=== PATIENT | female | born 1950 | race Caucasian/White ===

== ENCOUNTER 2020-08-18 13:23 | Outpatient (RCR) | payer MEDICARE, OTHER, SELFPAY ==
[2020-08-18] MEDS: COVID-19 VACC, MRNA(PFIZER)/PF 30 MCG/0.3 ML SYRINGE IM (12:05)
[2020-09-08] MEDS: COVID-19 VACC, MRNA(PFIZER)/PF 30 MCG/0.3 ML SYRINGE IM (11:52)
== END 2020-11-17 23:59 ==
LOC: IMMUN 13:23
PROVIDERS: PCP Family Medicine; Visit Provider Family Medicine
DX: Z23 Encounter for immunization (principal)
CPT/HCPCS: 0001A; 0002A; 91300

== ENCOUNTER 2023-01-30 11:22 | Emergency (ER) | payer MEDICARE, OTHER, SELFPAY ==
[2023-01-30 11:23] VITALS: BP 133/74; PULSE 97; RESP 18; TEMP 36.9; O2SAT 99; BMI 22.8
--- NOTE | 2023-01-30 11:42 | ED.VIS.LOWEX ---
HPI History of Present Illness Chief Complaint: Lower Extremity Injury Detail of Chief Complaint: Infection right lower extremity Informant: patient and spouse/S.O. Occured/Mechanism Comment: Blunt trauma from boot rubbing against bare skin with formation of blister . Became red on Monday. Patient attempted to drain by poking with a sterile needle . Onset/Context/Timing Onset: Days Context: Sudden Onset Timing: Continuous Quality of Pain: Burning Location: Medial right ankle and foot Current Severity: Moderate Maximum Severity: Moderate Worsened by: Blister with disruption of skin Relieved by: Napping Associated Symptoms Associated Symptoms: Negative for Parasthesia, Weakness or Loss of Funtion Narrative Narrative: Patient is a 72-year-old woman with history of hypercholesterolemia and hypothyroidism who presents because of infected blister. Patient denies fever or chills. Patient denies history of rheumatic fever, heart murmur, mitral prolapse or being immune suppressed. Patient denies allergy to antibiotics. Patient states when she poked the area with a needle blood came out. There was no pus. Patient denies groin pain. Tetanus Immunization: Unknown Prior similar symptoms: No Recent Illness/Hospitalization: No PFSH PFS Medical History (Updated 01/30/23 @ 12:[address] Kulwant Pierce MD) Blister Home Medications doxycycline monohydrate 100 mg capsule 100 mg PO BID #14 CAPSULES 01/30/23 [Rx Last Taken Unknown] Allergy/AdvReac Type Severity Reaction Status Date / Time No Known Allergies Allergy Verified 01/30/23 11:23 Social History (Updated 01/30/23 @ 11:[address] Kulwant Pierce MD) household members: spouse Smoking Status: Unknown if ever smoked substance use type: does not use ROS ROS ED Constitutional Constitutional ED: Denies chills, fever(s), subjective or sweats Eyes Eyes: Denies blurry vision, change in vision or diplopia Cardiovascular Cardiovascular: Denies chest pain or palpitations Respiratory/Chest Respiratory/Chest: Denies cough or dyspnea Gastrointestinal Gastrointestinal: Denies nausea or vomiting Musculoskeletal Musculoskeletal: Denies arthralgias or myalgias Integumentary Reports rash Neurologic Neurologic: Denies paresthesias Endocrine Endocrinology: Reports other Details: No symptoms of hypothyroid is him Hematologic/Lymphatic Hematologic/Lymphatic: Denies easy bleeding or easy bruising EXAM Physical Exam Const Vital Signs: 01/30/23 11:23 Temperature 98.5 F Temperature Source Temporal Pulse Rate 97 Respiratory Rate 18 Blood Pressure 133/74 H Blood Pressure Mean 93 Pulse Ox 99 Oxygen Delivery Method Room Air Positive well nourished and well developed General Appearance ED: well developed and NAD HEENT Reports moist mucous membranes normocephalic and atraumatic Eyes PERRL Eyes Narrative: Extraocular muscles are intact. Is anicteric. Neck full ROM and supple Resp normal respiratory effort, no retractions and clear to auscultation bilaterally Cardio regular rate, regular rhythm, S1 normal heart sound, S2 normal heart sound and no murmurs GI GI Narrative: There is no inguinal lymphadenopathy. Extremity Negative for normal to inspection Extremity Narrative: Patient has cellulitis involving the foot without involvement of the toes and leg predominantly anterior. There is an area of deep erythema as well as light erythema. These were demarcated with marking pen. There is no popliteal angle lymphadenopathy. There is fluctuance noted. There is no lymphangitis. General Extremety ED: Negative for cyanosis or edema General Extremity: Negative for cyanosis or edema Neuro oriented x3, CN's II-XII intact bilaterally and moves all extremities Sensorium / Orientation: alert Psych mental status grossly normal Skin No no wounds Skin Narrative: Cellulitis medial aspect of the right ankle foot and and leg Rashes: No no rashes MDM MDM MDM Narrative Medical decision making narrative: Patient has cellulitis with probable abscess. Will anesthetize area and perform incision and drainage. Blood work was obtained to restratify whether patient is a candidate for outpatient versus inpatient therapy. Lab Data Attestation: I reviewed the patient's lab results. Lab results narrative: CBC is unremarkable. Basic metabolic panel is unremarkable. Labs: Laboratory Results - last 24 hr 01/30/23 11:46 WBC 9.2 RBC 4.13 L Hgb 12.7 Hct 38.8 MCV 93.9 MCH 30.8 MCHC 32.7 RDW Std Deviation 44.4 H RDW Coeff of Hemant 13.0 Plt Count 256 MPV 9.2 Immature Gran % (Auto) 0.400 Neut % (Auto) 75.7 H Lymph % (Auto) 11.4 L [place] % (Auto) 11.5 H Eos % (Auto) 0.5 Baso % (Auto) 0.5 Absolute Neuts (auto) 7.0 Absolute Lymphs (auto) 1.05 Nucleated RBC % 0 Sodium 139 Potassium 3.7 Chloride 107 Carbon Dioxide 31.0 Anion Gap 1 L BUN 16 Creatinine 0.70 Estim Creat Clear Calc 43.30 Est GFR (MDRD) Af Amer 105 Est GFR (MDRD) Non-Af 87 BUN/Creatinine Ratio 22.7 H Glucose 106 Calcium 9.6 Procedures Other Procedures Procedure(s): Patient was consented for I&D. She explained risk benefits. She had no questions. Patient was prepped draped sterile manner. The area was Nestabs by local infiltration and field block. A 1 cm incision was made. There is minimal purulent material. Blunt dissection was taken with more purulent material noted. Cavity was irrigated. 1/4 inch Nu Gauze was placed as a wick. We will have nurse apply a dressing. Patient received first dose of antibiotics in the emergency department. Patient was instructed to contact her physician to have wick removed in 2 to 3 days. Discharge Plan Triage Chief Complaint: Lower Extremity Injury ED Provider: Kulwant Pierce Dx/Rx/DC Orders Clinical Impression: Abscess or cellulitis of foot Instructions: ED Abscess Incision And Drainage, ED Cellulitis Prescriptions: New doxycycline monohydrate 100 mg capsule 100 mg PO BID Qty: 14 0RF Primary Care Provider: Casandra Salguero Referrals: Casandra Salguero MD [Primary Care Provider] - 2 Days for wound check Activity Restrictions/Additional Instructions: 1. If you have a temperature greater 100 or shaking chills return to the emergency department 2. If the redness extends 1 to 2 inches past the ink duvall return to the emergency department 3. Take antibiotics until gone 4. You should see improvement within 24 hours. Disposition Disposition: Home, Self Care
[2023-01-30 12:02] LABS: Absolute Lymphocyte Count 1.05 X10^3/uL (0.83-4.51); Basophil# 0.05 X10^3/uL; Basophil% 0.5 % (0-1); Eosinophil# 0.05 X10^3/uL; Eosinophils% 0.5 % (0-5); Hematocrit 38.8 % (37-47); Hemoglobin 12.7 g/dL (12.0-15.0); Lymphocyte # 1.05 X10^3/ul (0.83-4.51); Lymphocyte % 11.4 % (19-41); Mean Corp Hgb Conc 32.7 g/dL (32-36); Mean Corpuscular Hgb 30.8 pg (27.0-32.0); Mean Corpuscular Volume 93.9 fL (81-99); Mean Platelet Vol. 9.2 fl (6.2-12.0); Monocyte# 1.06 X10^3/uL; Monocyte% 11.5 % (0-10); NRBC Flagged by Analyzer 0 % (0-5); Neutrophil # 6.97 X10^3/uL (2.7-7.7); Neutrophil % 75.7 % (47-70); Platelet Count 256 K/mm3 (150-450); RBC Distribution Width SD 44.4 fl (35.1-43.9); Red Blood Count 4.13 M/mm3 (4.2-5.4); White Blood Count 9.2 K/mm3 (4.4-11.0)
[2023-01-30 12:05] LABS: Anion Gap 1 (5-15); BUN 16 mg/dL (7-18); BUN/Creat Ratio 22.7 RATIO (10-20); Calcium,Total 9.6 mg/dL (8.5-10.1); Chloride 107 mmol/L (98-107); EST Glomerular Filtration Rate 87 mL/min (>60); Est Glom Filt Rate - Afr Amer 105 mL/min (>60); Glucose 106 mg/dL (74-106); Potassium 3.7 mmol/L (3.5-5.1); Sodium Level 139 mmol/L (136-145)
[2023-01-30] MEDS: Doxycycline 100 MG CAPSULE PO (12:21)
[2023-01-30] MEDS: Lidocaine 1% (20 ml mdv) 20 ML Vial INFILT (12:21)
== END 2023-01-30 12:27 | disposition home or self-care (01) ==
PROVIDERS: Emergency Provider Emergency Medicine; PCP Family Medicine; Visit Provider Emergency Medicine
DX: L03.115 Cellulitis of right lower limb (principal); E78.00 Pure hypercholesterolemia, unspecified; E03.9 Hypothyroidism, unspecified
CPT/HCPCS: 10060; 80048; 85025; 99284; A4216